=== PATIENT | male | born 1970 | race Caucasian/White ===

== ENCOUNTER 2021-03-26 10:56 | Emergency (ER) | payer OTHER ==
[2021-03-26 11:30] LABS: RED BLOOD COUNT 4.82 M/UL (4.20-5.50); WHITE BLOOD COUNT 7.8 K/UL (4.5-11.0)
[2021-03-26 11:51] LABS: BUN/CREATININE RATIO 30 (0-10)
[2021-03-26] MEDS ORDERED: NORVASC5 MG PO (16:14)
[2021-03-31] MEDS ORDERED: THERAGRAN M TAB1 EA PO (12:18)
[2021-03-31] MEDS ORDERED: ATORVASTATIN CA20 MG PO (12:18)
[2021-03-31] MEDS ORDERED: ASPIRIN EC81 MG PO (12:18)
[2021-03-31] MEDS ORDERED: LISINOPRIL10 MG PO (12:18)
[2021-03-31] MEDS ORDERED: CARVEDILOL25 MG PO (12:18)
== END 2021-03-26 16:24 | disposition home or self-care (01) ==
LOC: ER1 10:56
PROVIDERS: Physician Assistant
DX: T73.0XXA Starvation, initial encounter (principal); I10 Essential (primary) hypertension
CPT/HCPCS: 71045; 80053; 81001; 82550; 82553; 83874; 84484; 85025; 99285; J7030

== ENCOUNTER 2021-03-27 06:19 | Inpatient (IN) | payer OTHER ==
[~2021-03-27] VITALS: Ht 172.7 cm; Wt 57.2 kg
[~2021-03-27 06:19] MED LIST: NORVASC5 MG PO
[2021-03-27 11:55] LABS: RED BLOOD COUNT 5.14 M/UL (4.20-5.50)
[2021-03-27 12:00] LABS: WHITE BLOOD COUNT 11.9 K/UL (4.5-11.0)
[2021-03-27 12:16] LABS: BUN/CREATININE RATIO 25 (0-10)
[2021-03-28 04:18] LABS: HEMOGLOBIN 12.9 gm/dl (14.0-17.5); RED BLOOD COUNT 4.47 M/UL (4.20-5.50); WHITE BLOOD COUNT 9.9 K/UL (4.5-11.0)
[2021-03-28 04:31] LABS: BUN/CREATININE RATIO 22 (0-10)
[2021-03-29 02:58] LABS: HEMOGLOBIN 11.6 gm/dl (14.0-17.5); RED BLOOD COUNT 4.06 M/UL (4.20-5.50)
[2021-03-29 03:18] LABS: BUN/CREATININE RATIO 20 (0-10)
[2021-03-29 03:23] LABS: WHITE BLOOD COUNT 6.3 K/UL (4.5-11.0)
[2021-03-30 07:13] LABS: HEMOGLOBIN 12.6 gm/dl (14.0-17.5); WHITE BLOOD COUNT 7.8 K/UL (4.5-11.0)
[2021-03-30 07:17] LABS: RED BLOOD COUNT 4.58 M/UL (4.20-5.50)
[2021-03-30 07:54] LABS: BUN/CREATININE RATIO 11 (0-10)
[2021-03-31 07:51] LABS: HEMOGLOBIN 12.5 gm/dl (14.0-17.5); RED BLOOD COUNT 4.35 M/UL (4.20-5.50)
[2021-03-31 07:52] LABS: WHITE BLOOD COUNT 5.5 K/UL (4.5-11.0)
[2021-03-31 08:56] LABS: BUN/CREATININE RATIO 10 (0-10)
[2021-03-31] MEDS ORDERED: LISINOPRIL10 MG PO (12:18)
[2021-03-31] MEDS ORDERED: ASPIRIN EC81 MG PO (12:18)
[2021-03-31] MEDS ORDERED: CARVEDILOL25 MG PO (12:18)
[2021-03-31] MEDS ORDERED: THERAGRAN M TAB1 EA PO (12:18)
[2021-03-31] MEDS ORDERED: ATORVASTATIN CA20 MG PO (12:18)
== END 2021-03-31 13:59 | disposition short-term general hospital (02) | DRG 64 ==
LOC: ER1 06:19 → CDU 13:33 → MED SURG 4 03-28 10:58
PROVIDERS: Physician Assistant; ADMIT Internal Medicine
PROC: B24BZZ4 Ultrasonography of Heart with Aorta, Transesophageal (ICD-10-PCS; principal; 2021-03-28)
DX: I63.412 Cerebral infarction due to embolism of left middle cerebral artery (principal); I50.23 Acute on chronic systolic (congestive) heart failure; E87.6 Hypokalemia; Z20.822 Contact with and (suspected) exposure to COVID-19; I11.0 Hypertensive heart disease with heart failure; E11.9 Type 2 diabetes mellitus without complications; I16.0 Hypertensive urgency; I25.10 Atherosclerotic heart disease of native coronary artery without angina pectoris; Z59.0 Homelessness; Z83.3 Family history of diabetes mellitus; Z79.82 Long term (current) use of aspirin
CPT/HCPCS: ECHO; 36415; 70450; 70544; 70551; 78452; 80048; 80053; 80307; 81001; 82550; 82553; 82607; 82746; 82962; 83036; 83540; 83550; 83735; 83874; 84100; 84132; 84207; 84439; 84443; 84484; 85025; 85610; 85730; 86140; 93005; 93017; 93306; 93880; 96372; 96374; 96375; 97110-GP-CQ; 97163; 97530-GP-CQ; 99285; A9502; G0378; J0360; J1644; J1650; J2405; J2785; J3480; J7030; Q9967; U0002